=== PATIENT | male | born 1995 | race Caucasian/White ===

== ENCOUNTER 2017-04-05 08:28 | Observation (INO) | payer OTHER ==
[2017-04-05] MEDS ORDERED: ONDANSETRON 4 MG/2 ML VIAL ONE ×2 (09:08→16:58)
[2017-04-05] MEDS ORDERED: NS 1,000 ML IV ONE ×3 (09:12→09:29)
[2017-04-05] MEDS ORDERED: ONDANSETRON 4 MG/2 ML VIAL IVP ONE (09:12)
--- NOTE | 2017-04-05 09:13 | EDPHY ---
H & P Time Seen by Provider: 04/05/17 09:06 HPI/ROS: Chief complaint. Abdominal pain HPI. 21-year-old male presents with abdominal pain for 2 days. He initially thought he had food poisoning. He has been vomiting and can't keep fluids down. However now he has right lower quadrant pain. No diarrhea. Hurts to move and cough. Decreased urination. No chest discomfort or shortness of breath or fever. No similar symptoms previously. Penis and testicles are normal ROS Constitutional. no fever/chills, no weakness Eyes. no problems with vision ENT. no sore throat, no nasal drainage Cardiovascular. no chest pain Respiratory. no shortness of breath, no cough Abdominal. Right lower quadrant abdominal pain with vomiting . no problems urinating MS. no calf pain/swelling, no neck/back pain, no joint pain Skin. no rash Lymph. no swollen glands Neuro. no headache, no dizziness, no difficulty walking or with speech Past Medical/Surgical History: Healthy Social History: Single, nonsmoker, no alcohol Smoking Status: Never smoked Physical Exam: General Appearance: Alert well-developed male moderate distress vital signs are stable Eyes: Pupils equal and round no pallor or injection. ENT, Mouth: Mucous membranes are moist. Respiratory: There are no retractions, lungs are clear to auscultation. Cardiovascular: Regular rate and rhythm. Gastrointestinal: Abdomen is soft with tenderness in the right lower quadrant. No masses. Normal bowel sounds Neurological: Awake and alert, sensory and motor exams grossly normal. Skin: Warm and dry, no rashes. Musculoskeletal: Neck is supple nontender. Extremities symmetrical, full range of motion. Psychiatric: Patient is oriented X 3, there is no agitation. Constitutional: Initial Vital Signs Temperature (C) 36.9 C 04/05/17 08:30 Heart Rate 98 04/05/17 08:30 Respiratory Rate 18 04/05/17 08:30 Blood Pressure 122/81 H 04/05/17 08:30 O2 Sat (%) 95 04/05/17 08:30 O2 Delivery Mode Room Air O2 (L/minute) 2 Allergies/Adverse Reactions: No Known Allergies Allergy (Unverified 04/05/17 08:30) Home Medications: Medication Instructions Recorded NK [No Known Home Meds] 04/05/17 Medical Decision Making - Diagnostics Imaging Results: Imaging Impressions Abdomen CT 04/05/17 09:29 Impression: 1. Acute appendicitis with appendicolith and thickening up to 11 mm. 2. No drainable abscess, pneumoperitoneum or bowel obstruction. Findings and recommendations discussed with Emergency Department physician, MELISSA MCKEON at 10:54 hour, 04/05/2017. Final report concurs with initial preliminary interpretation. Procedures: IV normal saline. 2 L. Morphine for pain. Zofran for nausea ED Course/Re-evaluation: Re-evaluation patient is stable. He and I discussed imaging study results, treatment plan including need for admission and surgery. He expresses understanding and agreement Intravenous Invanz I consulted and discussed case with Dr. Melissa Mckeon, surgery, who agrees to the admission. He will see the patient shortly Differential Diagnosis: I considered dehydration, diverticulitis, urinary tract infection, gastroenteritis, acute appendicitis - Data Points Laboratory Results: Laboratory Results 04/05/17 09:05 04/05/17 09:05 04/05/17 04/05/17 09:05 09:05 WBC 11.42 10^3/uL H 10^3/uL (3.80-9.50) RBC 5.36 10^6/uL 10^6/uL (4.40-6.38) Hgb 16.3 g/dL g/dL (13.7-17.5) Hct 47.2 % % (40.0-51.0) MCV 88.1 fL fL (81.5-99.8) MCH 30.4 pg pg (27.9-34.1) MCHC 34.5 g/dL g/dL (32.4-36.7) RDW 12.3 % % (11.5-15.2) Plt Count 226 10^3/uL 10^3/uL (150-400) MPV 10.5 fL fL (8.7-11.7) Neut % (Auto) 80.3 % H % (39.3-74.2) Lymph % (Auto) 9.2 % L % (15.0-45.0) [place] % (Auto) 9.5 % % (4.5-13.0) Eos % (Auto) 0.4 % L % (0.6-7.6) Baso % (Auto) 0.2 % L % (0.3-1.7) Nucleat RBC Rel Count 0.0 % % (0.0-0.2) Absolute Neuts (auto) 9.17 10^3/uL H 10^3/uL (1.70-6.50) Absolute Lymphs (auto) 1.05 10^3/uL 10^3/uL (1.00-3.00) Absolute Monos (auto) 1.08 10^3/uL H 10^3/uL (0.30-0.80) Absolute Eos (auto) 0.05 10^3/uL 10^3/uL (0.03-0.40) Absolute Basos (auto) 0.02 10^3/uL 10^3/uL (0.02-0.10) Absolute Nucleated RBC 0.00 10^3/uL 10^3/uL (0-0.01) Immature Gran % 0.4 % % (0.0-1.1) Immature Gran # 0.05 10^3/uL 10^3/uL (0.00-0.10) Sodium 141 mEq/L mEq/L (134-144) Potassium 3.9 mEq/L mEq/L (3.5-5.2) Chloride 102 mEq/L mEq/L (97-110) Carbon Dioxide 23 mEq/l mEq/l (22-31) Anion Gap 16 mEq/L mEq/L (8-16) BUN 11 mg/dL mg/dL (7-23) Creatinine 1.0 mg/dL mg/dL (0.7-1.3) Estimated GFR > 60 Glucose 105 mg/dL H mg/dL (70-100) Calcium 9.9 mg/dL mg/dL (8.5-10.4) Total Bilirubin 1.3 mg/dL mg/dL (0.1-1.4) AST 17 IU/L IU/L (17-59) ALT 23 IU/L IU/L (21-72) Alkaline Phosphatase 60 IU/L IU/L (38-126) Total Protein 8.1 g/dL g/dL (6.3-8.2) Albumin 4.9 g/dL g/dL (3.5-5.0) Lipase 44.0 IU/L IU/L (23-300) Medications Given: Discontinued Medications Sodium Chloride (Ns) 1,000 mls @ 0 mls/hr IV EDNOW ONE; Wide Open PRN Reason: Protocol Stop: 04/05/17 09:13 Last Admin: 04/05/17 09:13 Dose: 1,000 mls Sodium Chloride (Ns) 1,000 mls @ 0 mls/hr IV ONCE ONE; Wide Open PRN Reason: Protocol Stop: 04/05/17 09:30 Last Admin: 04/05/17 10:03 Dose: 1,000 mls Sodium Chloride (Ns) 1,000 mls @ 0 mls/hr IV ONCE ONE; Wide Open PRN Reason: Protocol Stop: 04/05/17 09:30 Last Admin: 04/05/17 09:45 Dose: 1,000 mls Ertapenem 1 gm/ Sodium (Chloride) 100 mls @ 200 mls/hr IV EDNOW ONE PRN Reason: Protocol Stop: 04/05/17 11:42 Last Admin: 04/05/17 11:50 Dose: 100 mls Morphine Sulfate (Morphine) 6 mg IVP EDNOW ONE Stop: 04/05/17 09:30 Last Admin: 04/05/17 09:45 Dose: 6 mg Morphine Sulfate (Morphine) 4 mg IVP EDNOW ONE Stop: 04/05/17 10:35 Last Admin: 04/05/17 10:51 Dose: 4 mg Ondansetron HCl (Zofran) 4 mg IVP EDNOW ONE Stop: 04/05/17 09:13 Last Admin: 04/05/17 09:13 Dose: 4 mg Departure - Departure Disposition: Home, Routine, Self-Care Clinical Impression: Acute appendicitis Qualifiers: Acute appendicitis type: with localized peritonitis Qualified Code(s): K35.3 - Acute appendicitis with localized peritonitis Condition: Fair Referrals: SOFIA ALEGRIA [Other] - As per Instructions
[2017-04-05 09:28] LABS: % IMMATURE GRANULYOCYTES 0.4 % (0.0-1.1); ABSOLUTE IMMATURE GRANULOCYTES 0.05 10^3/uL (0.00-0.10); ADD DIFF? NO; ADD MORPH? NO; ADD SCAN? NO; ATYPICAL LYMPHOCYTE FLAG 0 (0-99); FRAGMENT RBC FLAG 0 (0-99); HEMATOCRIT 47.2 % (40.0-51.0); HEMOGLOBIN 16.3 g/dL (13.7-17.5); LEFT SHIFT FLG 50 (0-99); LIPEMIA HEMOLYSIS FLAG 90 (0-99); MEAN CELL HEMOGLOBIN 30.4 pg (27.9-34.1); MEAN CELL HEMOGLOBIN CONCENTR. 34.5 g/dL (32.4-36.7); MEAN CELL VOLUME 88.1 fL (81.5-99.8); MEAN PLATELET VOLUME 10.5 fL (8.7-11.7); PLATELET CLUMPS FLAG 0 (0-99); PLATELET COUNT 226 10^3/uL (150-400); RED BLOOD CELL COUNT 5.36 10^6/uL (4.40-6.38); RED CELL DISTRIBUTION WIDTH 12.3 % (11.5-15.2)
[2017-04-05 09:43] LABS: ALANINE AMINOTRANSFERASE 23 IU/L (21-72); ALBUMIN 4.9 g/dL (3.5-5.0); ALKALINE PHOSPHATASE 60 IU/L (38-126); ANION GAP 16 mEq/L (8-16); ASPARTATE AMINOTRANSFERASE 17 IU/L (17-59); BILIRUBIN,TOTAL 1.3 mg/dL (0.1-1.4); CALCIUM 9.9 mg/dL (8.5-10.4); CARBON DIOXIDE 23 mEq/l (22-31); CHLORIDE 102 mEq/L (97-110); GLOMERULAR FILTRATION RATE > 60; GLUCOSE 105 mg/dL (70-100); POTASSIUM 3.9 mEq/L (3.5-5.2); SODIUM 141 mEq/L (134-144); TOTAL PROTEIN 8.1 g/dL (6.3-8.2)
[2017-04-05] MEDS ORDERED: IOPAMIDOL (ISOVUE-300) 100 ML BTL ONE (09:45)
[2017-04-05] MEDS ORDERED: ERTAPENEM 1 GM in NS 100 ML IV ONE (11:13)
[2017-04-05] MEDS ORDERED: HYDROmorphONE/DILAUDID 1 MG/ML SYR IVP PRN (12:47)
[2017-04-05] MEDS ORDERED: ONDANSETRON 4 MG/2 ML VIAL IVP PRN (12:47)
[2017-04-05] MEDS ORDERED: NS 1,000 ML IV SCH (13:00)
--- NOTE | 2017-04-05 13:38 | PDGENHP ---
History and Physical - Chief Complaint Nausea vomiting and abdominal pain - History of Present Illness Otherwise healthy 21-year-old male who presents with a 36 hour history of nausea vomiting and abdominal pain. Patient states that 36 hours ago he began to have fairly excruciating nausea with vomiting followed shortly thereafter by pain. He states that this persisted for the last 36 hours and the pain started to worsen a relocated to his right lower quadrant this morning which is why he sought care. He states that the nausea has been fairly persistent, he is able to keep down clears although he vomits most things up. The pain he describes it was initially fairly universal throughout his abdomen relocating to his right lower quadrant this morning. He states that the pain is sharp, nonradiating and 7/10 in intensity. It is worse with rebound and less with deep palpation. History Information - Allergies/Home Medication List Allergies/Adverse Reactions: No Known Allergies Allergy (Unverified 04/05/17 08:30) Home Medications: NK [No Known Home Meds] 04/05/17 [Last Taken Unknown] I have personally reviewed and updated: medical history, social history, surgical history - Social History Smoking Status: Never smoked Additional social history: Student at [employer], studying [employer] biology. Review of Systems ROS: 10pt was reviewed & negative except for what was stated in HPI & below Physical Exam Temp Pulse Resp BP Pulse Ox 37.2 C 75 16 125/56 H 96 04/05/17 12:41 04/05/17 12:41 04/05/17 12:41 04/05/17 12:41 04/05/17 12:41 O2 (L/minute) 2 Constitutional: no apparent distress Eyes: PERRL, anicteric sclera Ears, Nose, Mouth, Throat: moist mucous membranes Cardiovascular: regular rate and rhythym Respiratory: no respiratory distress, no rales or rhonchi Gastrointestinal: no palpable masses, rebound, other (Tender to palpation in the right lower quadrant), No guarding Skin: warm Musculoskeletal: full muscle strength Neurologic: AAOx3, sensation intact bilaterally Psychiatric: interacting appropriately, not anxious Lymph, Heme, Immunologic: No lymphadenopathy Lab Data & Imaging Review 04/05/17 09:05 04/05/17 09:05 WBC 11.42 10^3/uL (3.80-9.50) H 04/05/17 09:05 RBC 5.36 10^6/uL (4.40-6.38) 04/05/17 09:05 Hgb 16.3 g/dL (13.7-17.5) 04/05/17 09:05 Hct 47.2 % (40.0-51.0) 04/05/17 09:05 MCV 88.1 fL (81.5-99.8) 04/05/17 09:05 MCH 30.4 pg (27.9-34.1) 04/05/17 09:05 MCHC 34.5 g/dL (32.4-36.7) 04/05/17 09:05 RDW 12.3 % (11.5-15.2) 04/05/17 09:05 Plt Count 226 10^3/uL (150-400) 04/05/17 09:05 MPV 10.5 fL (8.7-11.7) 04/05/17 09:05 Neut % (Auto) 80.3 % (39.3-74.2) H 04/05/17 09:05 Lymph % (Auto) 9.2 % (15.0-45.0) L 04/05/17 09:05 [place] % (Auto) 9.5 % (4.5-13.0) 04/05/17 09:05 Eos % (Auto) 0.4 % (0.6-7.6) L 04/05/17 09:05 Baso % (Auto) 0.2 % (0.3-1.7) L 04/05/17 09:05 Nucleat RBC Rel Count 0.0 % (0.0-0.2) 04/05/17 09:05 Absolute Neuts (auto) 9.17 10^3/uL (1.70-6.50) H 04/05/17 09:05 Absolute Lymphs (auto) 1.05 10^3/uL (1.00-3.00) 04/05/17 09:05 Absolute Monos (auto) 1.08 10^3/uL (0.30-0.80) H 04/05/17 09:05 Absolute Eos (auto) 0.05 10^3/uL (0.03-0.40) 04/05/17 09:05 Absolute Basos (auto) 0.02 10^3/uL (0.02-0.10) 04/05/17 09:05 Absolute Nucleated RBC 0.00 10^3/uL (0-0.01) 04/05/17 09:05 Immature Gran % 0.4 % (0.0-1.1) 04/05/17 09:05 Immature Gran # 0.05 10^3/uL (0.00-0.10) 04/05/17 09:05 Sodium 141 mEq/L (134-144) 04/05/17 09:05 Potassium 3.9 mEq/L (3.5-5.2) 04/05/17 09:05 Chloride 102 mEq/L (97-110) 04/05/17 09:05 Carbon Dioxide 23 mEq/l (22-31) 04/05/17 09:05 Anion Gap 16 mEq/L (8-16) 04/05/17 09:05 BUN 11 mg/dL (7-23) 04/05/17 09:05 Creatinine 1.0 mg/dL (0.7-1.3) 04/05/17 09:05 Estimated GFR > 60 04/05/17 09:05 Glucose 105 mg/dL (70-100) H 04/05/17 09:05 Calcium 9.9 mg/dL (8.5-10.4) 04/05/17 09:05 Total Bilirubin 1.3 mg/dL (0.1-1.4) 04/05/17 09:05 AST 17 IU/L (17-59) 04/05/17 09:05 ALT 23 IU/L (21-72) 04/05/17 09:05 Alkaline Phosphatase 60 IU/L (38-126) 04/05/17 09:05 Total Protein 8.1 g/dL (6.3-8.2) 04/05/17 09:05 Albumin 4.9 g/dL (3.5-5.0) 04/05/17 09:05 Lipase 44.0 IU/L (23-300) 04/05/17 09:05 Visualized and Interpreted imaging results: Yes Interpretation: CT scan of the abdomen and pelvis shows a dilated fluid-filled appendix measuring 11 mm with an appendicolith, no free fluid or signs of perforation Assessment & Plan Assessment: Acute appendicitis (Acute) Plan: 21-year-old male with acute appendicitis. I discussed the risks benefits and alternatives to surgery, he wishes to proceed. We will plan to keep him NPO, IV fluids, IV pain medicines and Zofran. We will plan to proceed urgently to the operating room for laparoscopic appendectomy. I discussed the plan of action with his bedside nurse and the ED attending Dr. Mckeon
[2017-04-05] MEDS ORDERED: BUPIVACAINE/EPI 0.25% 30 ML SDV ONE (14:35)
[2017-04-05] MEDS ORDERED: LR 1,000 ML IV ONE (15:13)
[2017-04-05] MEDS ORDERED: fentaNYL 100 MCG/2 ML INJ ONE ×2 (15:35→18:17)
[2017-04-05] MEDS ORDERED: MIDAZOLAM 2 MG/2 ML VIAL IVP ONE (15:49)
--- NOTE | 2017-04-05 15:51 | PDANEPAE ---
ANE History of Present Illness ester [place] Past Medical History - Cardiovascular History Hx Hypertension: No Hx Arrhythmias: No Hx Chest Pain: No Hx Coronary Artery / Peripheral Vascular Disease: No Hx CHF / Valvular Disease: No Hx Palpitations: No - Pulmonary History Hx COPD: No Hx Asthma/Reactive Airway Disease: No Hx Recent Upper Respiratory Infection: No Hx Oxygen in Use at Home: No - Endocrine History Hx Diabetes: No Hypothyroid: No Hyperthyroid: No - Renal History Hx Renal Disorders: No - Liver History Hx Hepatic Disorders: No - Neurological & Psychiatric Hx Hx Neurological and Psychiatric Disorders: No ANE Review of Systems Review of systems is: negative - Exercise capacity Exercise capacity: >=4 METS ANE Patient History - Allergies Allergies/Adverse Reactions: No Known Allergies Allergy (Unverified 04/05/17 08:30) - Home Medications Home Medications: NK [No Known Home Meds] 04/05/17 [Last Taken Unknown] - NPO status NPO Since - Liquids (Date): 04/05/17 NPO Since - Liquids (Time): 08:00 NPO Since - Solids (Date): 04/04/17 NPO Since - Solids (Time): 11:59 - Smoking Hx Smoking Status: Never smoked ANE Labs/Vital Signs - Labs Result Diagrams: 04/05/17 09:05 04/05/17 09:05 - Vital Signs Blood Pressure: 122/63 Heart Rate: 61 Respiratory Rate: 16 O2 Sat (%): 98 Height: 182.88 cm Weight: 69.309 kg CL[place]EL Physical Exam - Airway Neck exam: FROM Mallampati Score: Class 2 Mouth exam: normal dental/mouth exam - Pulmonary Pulmonary: no respiratory distress - Cardiovascular Cardiovascular: regular rate and rhythym - ASA Status ASA Status: I ANE Anesthesia Plan Anesthesia Plan: general endotracheal anesthesia
[2017-04-05] MEDS ORDERED: DEXAMETHASONE 4 MG/ML VIAL ONE (15:58)
[2017-04-05] MEDS ORDERED: ROCURONIUM 50 MG/5 ML VIAL ONE (15:58)
[2017-04-05] MEDS ORDERED: LIDOCAINE 2% 5 ML SDV ONE (15:59)
[2017-04-05] MEDS ORDERED: PROPOFOL 200 MG/20 ML VIAL ONE (16:00)
[2017-04-05] MEDS ORDERED: fentaNYL 100 MCG/2 ML INJ IVP ONE (16:00)
[2017-04-05] MEDS ORDERED: GLYCOPYRROLATE 0.2 MG/1 ML VIAL ONE (16:43)
[2017-04-05] MEDS ORDERED: SUGAMMADEX SODIUM 200 MG/2 ML VIAL IVP ONE (16:46)
[2017-04-05] MEDS ORDERED: KETOROLAC 30 MG/1 ML SDV ONE (16:58)
[2017-04-05] MEDS ORDERED: LR 500 ML IV PRN (17:01)
[2017-04-05] MEDS ORDERED: ALBUTEROL 3 ML DEYVIAL IH PRN (17:01)
[2017-04-05] MEDS ORDERED: HYDROCODONE/APAP 5/325 TAB PO PRN ×2 (17:01→17:13)
[2017-04-05] MEDS ORDERED: NALOXONE HCL 0.4 MG/ML INJ IVP PRN (17:01)
[2017-04-05] MEDS ORDERED: fentaNYL 100 MCG/2 ML INJ IVP PRN (17:01)
--- NOTE | 2017-04-05 17:13 | POSTOPPROG ---
Post Op Note Date of Operation: 04/05/17 Surgeon: Alvin Griffin Anesthesiologist: Marek Anesthesia: GET(General Endotracheal) Pre-op Diagnosis: Appendicitis Post-op Diagnosis: same Procedure: lap appy Findings: acute, non perforated Inf/Abcess present in the surg proc area at time of surgery?: No EBL: Minimal Specimen(s): appendix
[2017-04-05] MEDS ORDERED: D5W 1/2 NS W/ 20 KCl/L 1,000 ML IV SCH (17:15)
--- NOTE | 2017-04-05 17:16 | POSTANESTH ---
Post Anesthetic Evaluation Cardiovascular Status: Normal, Stable Respiratory Status: Normal, Stable Level of Consciousness/Mental Status: Can Participate in Eval Pain Control: Adequate, Prn Tx Ordered Nausea/Vomiting Control: Adequate, Prn Tx Ordered Complications Possibly Related to Anesthesia: None Noted
[2017-04-05 18:41] VITALS: RESP 16
--- NOTE | 2017-04-06 05:48 | GOP ---
[f rep st] OPERATIVE REPORT DATE OF OPERATION: 04/05/2017 SURGEON: Alvin Griffin MD RESEARCH TEST ENGINE OPERATOR: None. ANESTHESIA: General endotracheal. ANESTHESIOLOGIST: Dr. Riky Jara. PREOPERATIVE DIAGNOSIS: Acute appendicitis. POSTOPERATIVE DIAGNOSIS: Acute appendicitis. PROCEDURE PERFORMED: Laparoscopic appendectomy. FINDINGS: Acute, inflamed, nonperforated appendicitis. SPECIMENS: Appendix. ESTIMATED BLOOD LOSS: 5 cc. DESCRIPTION OF PROCEDURE: The patient was greeted in the preoperative suite. Once again, risks, be nefits, and alternatives were discussed. Consent was signed. Antibiotics given on-call to the oper ating room. Once in the operating room, after all anesthesia machines, including SCDs were on and f unctioning, a [facility] time-out was performed. General endotracheal anesthesia was then induced without incident. The patient's abdomen was then widely prepped and draped in a typic al sterile fashion. I commenced the procedure by making a linear infraumbilical incision and carryi ng it down through the subcutaneous tissue. Using a Veress needle, I successfully entered the abdom en and insufflated with CO2 to 15 mmHg. Through this, I inserted a 12 mm Visiport under direct visu alization. Once this was done, I placed 2 other 5 mm ports, 1 in the suprapubic and the other in th e left lower quadrant, both under direct visualization. I identified the appendix by tracing the ta eniae inferiorly. Once identified, I created a window at the base of the appendix using a [place] dissector. After this window was successfully created using a single fire of the EndoGIA blue load stapler, I amputated the appendix from the cecal base. In the same fashion, using a white load, I a mputated the mesoappendix. There was a small pulsatile bleeder which was taken care of successfully with multiple 5 mm Endoclips at the site. The patient's pelvis and right lower quadrant were then irrigated with warm normal saline, 1 L, noting clear effluent in the suction canister. The specimen was then placed in an EndoCatch bag and removed. Local anesthesia was then instilled into port sit es. Once again, my staple lines were inspected and noted to be grossly intact and hemostatic. I re moved my ports and evacuated my pneumoperitoneum. I closed my infraumbilical incision using an 0 Vi cryl stitch in a [id number] fashion. The skin was closed with running 4-0 Monocryl, over which Dermabond was placed. The patient was then extubated in the operative suite and taken to the PACU in satisfactory condition. DRAINS: None. COUNTS: All counts were reported as correct x2. /[id number]/MODL
[2017-04-06 08:44] VITALS: TEMP 98
[2017-04-06 09:21] LABS: HEMATOCRIT 40.2 % (40.0-51.0); HEMOGLOBIN 13.6 g/dL (13.7-17.5); MEAN CELL HEMOGLOBIN CONCENTR. 33.8 g/dL (32.4-36.7); MEAN CELL VOLUME 88.7 fL (81.5-99.8); RED BLOOD CELL COUNT 4.53 10^6/uL (4.40-6.38); RED CELL DISTRIBUTION WIDTH 12.2 % (11.5-15.2)
[2017-04-06] MEDS ORDERED: NS BOLUS 1000 ML (Wide open) IV ONE (11:00)
[2017-04-06 11:41] VITALS: BP 109/53; PULSE 80; O2SAT 92
== END 2017-04-06 12:31 | disposition home or self-care (01) ==
LOC: INTOOBSV 11:52 → F3E 12:29
PROVIDERS: ADMIT Surgery; ATTEND Surgery
PROC: 0DTJ4ZZ Resection of Appendix, Percutaneous Endoscopic Approach (ICD-10-PCS; principal; 2017-04-05 16:00)
DX: K35.80 Unspecified acute appendicitis (principal)
CPT/HCPCS: 44970; 74177; 96361; 96365; 96375; 96376; 99285; G0378; J1100; J1335; J1885; J2250; J2405; J2704; J3010; Q9967

== ENCOUNTER 2017-10-13 23:12 | Inpatient (IN) | payer OTHER ==
[2017-10-13] MEDS ORDERED: NS 1,000 ML IV ONE ×2 (23:18)
[2017-10-13] MEDS ORDERED: ONDANSETRON 4 MG/2 ML VIAL IVP ONE (23:18)
--- NOTE | 2017-10-13 23:18 | EDPHY ---
H & P Stated Complaint: Flu-like, SOB, vomiting HPI/ROS: HPI CHIEF COMPLAINT: Flu-like illness HISTORY OF PRESENT ILLNESS: Patient is a very pleasant 21-year-old male, otherwise healthy no significant medical history does not take any daily medications he presents emergency room with muscle aches and joint pain, generalized fatigue, sore throat and a nonproductive cough. Patient states he thinks he may have the flu. He does report that he had some vomiting and this is what prompted to come to the emergency room. Denies Diarrhea. Upon arrival he does appear dehydrated. He denies chest pain or shortness of breath. Denies abdominal pain. Patient denies headache or neck pain. Denies neck stiffness. Denies abdominal pain or urine symptoms. Past Medical History: Denies medical history Past Surgical History: Appendectomy Social History: Denies daily use of drugs alcohol tobacco. Family History: Noncontributory ROS REVIEW OF SYSTEMS: A comprehensive 10 point review of systems is otherwise negative aside from elements mentioned in the history of present illness. Exam Constitutional appears well nontoxic triage nursing summary reviewed, vital signs reviewed, awake/alert. BP noted to be in the 90s Systolic. Eyes normal conjunctivae and sclera, EOMI, PERRLA. HENT posterior pharynx is erythematous without significant exudate or significant swelling, dry mucous membranes, no epistaxis, neck supple/ no meningismus, no raccoon eyes. Respiratory clear to auscultation bilaterally, normal breath sounds, no respiratory distress, no wheezing. Cardiovascular rate normal, regular rhythm, no murmur, no edema, distal pulses normal. Gastrointestinal soft, non-tender, no rebound, no guarding, normal bowel sounds, no distension, no pulsatile mass. Genitourinary no CVA tenderness. Musculoskeletal no midline vertebral tenderness, full range of motion, no calf swelling, no tenderness of extremities, no meningismus, good pulses, neurovascularly intact. Skin extensive acne on his back otherwise no rash pink, warm, & dry, no rash, skin atraumatic. Neurologic awake, alert and oriented x 3, AAOx3, moves all 4 extremities equally, motor intact, sensory intact, CN II-XII intact, normal cerebellar, normal vision, normal speech. Psychiatric normal mood/affect. Heme/Lymph/Immune no lymphadenopathy. Differential Diagnosis: Includes but is not limited to viral syndrome, upper respiratory tract infection, influenza, pneumonia, UTI, strep, dehydration Medical Decision Making: Plan for this patient IV establishment IV fluid bolus , 2 L normal saline, IV Zofran for nausea, chest x-ray, basic blood work, influenza and strep and re-evaluate. Re-evaluation: 0130: Patient developed a fever here. Tylenol Motrin at been given. He has completed 2 L of fluid and still has not made urine. Will give him a 3rd L. he is feeling better. 0231: Blood work is reviewed. As well as chest x-ray. Patient is a negative strep. As well as influenza is negative. Chest x-ray do not see any pneumonia. Patient had rather soft blood pressures here in emergency room an 80 systolic and 90 systolic. Patient reports to me that he typically runs in the 80s to 90s. He is a thin male. 0233: Patient's vitals currently her blood pressure 96/39, heart rate 86. Pulse ox 91% on room air. Patient is getting a Fourth liter of fluid. he has had 3 L of normal saline and now A fourth L of lactated Ringer's. Has not urinated yet. Still appears around exam. He does feel better after the 1st 3 L of fluid as well as Tylenol Motrin for fever control. I have sent blood cultures. Lactic acid is less than 1. He does not have systemic white count. Given his soft blood pressures and fever he most likely has a viral syndrome but I will admitted to the hospitalist service for observation due to his blood pressure running slightly low. I do not feel that he needs vasopressors at this time. He has responded to IV fluids. Most likely has a viral illness. Blood cultures are pending. Resp panel sent UA pedning 0242: Consult the hospitalist service for observation of this patient overnight for dehydration and soft blood pressures. Blood cultures are pending. Respiratory panel is pending. UA pending. On exam no source of infection. I do not feel that he needs antibiotics at this times most likely viral process in the setting of dehydration. Source: Patient - Personal History Current Tetanus Diphtheria and Acellular Pertussis (TDAP): Yes - Medical/Surgical History Hx Asthma: No Hx Chronic Respiratory Disease: No Hx Diabetes: No Hx Cardiac Disease: No Hx Renal Disease: No Hx Cirrhosis: No Hx Alcoholism: No Hx HIV/AIDS: No Hx Splenectomy or Spleen Trauma: No Other PMH: depression and insomnia- past - Social History Smoking Status: Never smoked Constitutional: Initial Vital Signs Temperature (C) 37.5 C 10/13/17 23:16 Heart Rate 112 H 10/13/17 23:16 Respiratory Rate 20 10/13/17 23:16 Blood Pressure 93/52 L 10/13/17 23:16 O2 Sat (%) 95 10/13/17 23:16 O2 Delivery Mode Room Air Allergies/Adverse Reactions: No Known Allergies Allergy (Unverified 10/13/17 23:14) Home Medications: Medication Instructions Recorded Acetaminophen [Tylenol 325mg (*)] 650 mg PO Q4HRS PRN tab 10/15/17 Ibuprofen [Motrin (*)] 400 mg PO Q6H PRN #30 tab 10/15/17 Oseltamivir Phosphate [Tamiflu 75 75 mg PO BIDMEAL #7 cap 10/15/17 mg (*)] Medical Decision Making - Data Points Laboratory Results: Laboratory Results 10/13/17 23:47 10/13/17 23:47 Medications Given: Discontinued Medications Acetaminophen (Tylenol) 1,000 mg PO EDNOW ONE Stop: 10/14/17 00:16 Last Admin: 10/14/17 00:27 Dose: 1,000 mg Acetaminophen (Tylenol) 650 mg PO Q4HRS PRN PRN Reason: Pain, Mild/Fever, Can Take PO Stop: 04/12/18 02:59 Last Admin: 10/14/17 20:06 Dose: 650 mg Sodium Chloride (Ns) 1,000 mls @ 0 mls/hr IV EDNOW ONE; Wide Open PRN Reason: Protocol Stop: 10/13/17 23:19 Last Admin: 10/13/17 23:48 Dose: 1,000 mls Sodium Chloride (Ns) 1,000 mls @ 0 mls/hr IV EDNOW ONE; Wide Open PRN Reason: Protocol Stop: 10/13/17 23:19 Last Admin: 10/14/17 00:19 Dose: 1,000 mls Sodium Chloride (Ns) 1,000 mls @ 0 mls/hr IV ONCE ONE PRN Reason: Wide Open Stop: 10/14/17 01:35 Last Admin: 10/14/17 01:41 Dose: 1,000 mls Lactated Ringer's (Lr) 1,000 mls @ 500 mls/hr IV EDNOW ONE Stop: 10/14/17 04:06 Last Admin: 10/14/17 02:14 Dose: 1,000 mls Lactated Ringer's (Lr) 1,000 mls @ 150 mls/hr IV CONT CUONG Stop: 04/12/18 03:29 Last Admin: 10/15/17 09:43 Dose: 1,000 mls Ibuprofen (Motrin) 800 mg PO EDNOW ONE Stop: 10/14/17 00:16 Last Admin: 10/14/17 00:28 Dose: 800 mg Ibuprofen (Motrin) 400 mg PO Q6H PRN PRN Reason: Pain, Mild/Fever, Can Take PO Stop: 04/12/18 18:13 Last Admin: 10/15/17 09:27 Dose: 400 mg Ondansetron HCl (Zofran) 4 mg IVP EDNOW ONE Stop: 10/13/17 23:19 Last Admin: 10/13/17 23:48 Dose: 4 mg Ondansetron HCl (Zofran) 4 mg IVP EDNOW ONE Stop: 10/14/17 00:16 Last Admin: 10/14/17 00:20 Dose: 4 mg Ondansetron HCl (Zofran) 4 mg IVP Q4HRS PRN PRN Reason: Nausea/Vomiting, Can't Take PO Stop: 04/12/18 02:59 Last Admin: 10/15/17 04:32 Dose: 4 mg Oseltamivir Phosphate (Tamiflu) 75 mg PO BIDMEAL [facility] Stop: 10/18/17 18:01 Last Admin: 10/15/17 09:27 Dose: 75 mg Departure - Departure Disposition: [facility] Acute Clinical Impression: Dehydration, Acute febrile illness Condition: Good
[2017-10-13 23:59] LABS: PLATELET COUNT 207 10^3/uL (150-400)
[2017-10-14] MEDS ORDERED: IBUPROFEN 800 MG TAB PO ONE (00:15)
[2017-10-14] MEDS ORDERED: ACETAMINOPHEN 500 MG TAB PO ONE (00:15)
[2017-10-14] MEDS ORDERED: ONDANSETRON 4 MG/2 ML VIAL IVP ONE (00:15)
[2017-10-14] MEDS ORDERED: NS 1,000 ML IV ONE (01:34)
[2017-10-14] MEDS ORDERED: LR 1,000 ML IV ONE (02:07)
[2017-10-14] MEDS ORDERED: HYDROCODONE/APAP 5/325 TAB PO PRN (03:00)
[2017-10-14] MEDS ORDERED: ONDANSETRON DISINTEGRATING 4 MG TAB PO PRN (03:00)
--- NOTE | 2017-10-14 05:50 | GHP ---
[f rep st] HISTORY AND PHYSICAL DATE OF ADMISSION: 10/14/2017 SOURCE: Patient provides history, appears reliable. EMR also reviewed and case discussed with ED aundrea maharaj. CHIEF COMPLAINT: Viral syndrome with cough, muscle aches, fatigue, sore throat, and vomiting. HISTORY OF PRESENT ILLNESS: This is a very pleasant 21-year-old gentleman with no significant past m edical history and not on any medications, who presents to the emergency department today with compla ints of 1-day history of nonproductive cough, diffuse myalgias, fatigue, fevers, chills, sore throat, and vomiting at home. Patient reports multiple sick contact exposures. He is a student at . Lakshmi coy did develop a fever in the emergency department and was noted to have some low normal blood pres sures. Patient reports that he has a history of low normal blood pressures, typically in the 90s. P atient denies any lightheadedness, chest pain, palpitations, syncope. After patient developed the na usea and vomiting, he presented to the emergency department for evaluation. REVIEW OF SYSTEMS: Negative except as noted above. ALLERGIES: No known drug allergies. MEDICATIONS: None. PAST MEDICAL HISTORY: None. PAST SURGICAL HISTORY: Significant for appendectomy. FAMILY HISTORY: Maternal grandmother with history of diabetes. SOCIAL HISTORY: Patient is currently a student at studying molecular biology. He is originally f [place], [place], and has been in [place] for the last 3 years. He denies any tobacco or drug use . No marijuana use. He does occasionally use alcohol, but nothing on a daily basis. CODE STATUS: Full. PHYSICAL EXAMINATION: VITAL SIGNS: Upon arrival to the emergency department, blood pressure 93/52, heart rate 112, respiratory rate 20, O2 sat 95 on room air, with a temperature of 37.5. Fever, T-max in the ER is 38.8. Current vitals on the floor: Blood pressure 104/43, heart rate is 66, respirato ry rate 18, O2 sat is 92% on room air with a temperature 36.6. GENERAL: No acute distress. Pleasan t, acutely ill, but nontoxic, young adult male, is lying quietly in bed. He does appear fatigued and ill. HEAD: Normocephalic, atraumatic. EYES: Extraocular muscles grossly intact. Pupils equal, r ound, decreased reactivity to light bilaterally, but symmetric. No scleral icterus or conjunctival i njection. ENT: Mucous membranes currently appear moist. There is some posterior oropharyngeal eryt maría without any exudates. NECK: Supple. Trachea midline. Patient does have some submandibular ly mph nodes that are slightly tender to palpation. CV: Regular rate and rhythm. No murmurs, rubs, or gallops appreciated. RESPIRATORY: Unlabored breathing. Lungs are clear to auscultation bilaterall y. No wheezes, rales, or rhonchi appreciated. ABDOMEN: Positive bowel sounds. Soft, nontender to palpation. No rebound, guarding, or masses appreciated. : No Christine in place. No suprapubic tend erness to palpation. EXTREMITIES: No cyanosis, clubbing, or edema appreciated. 2+ pedal pulses caleb aterally. MUSCULOSKELETAL: Strength is grossly normal. Patient is able to move all extremities and sit up independently. NEUROLOGIC: Grossly nonfocal. No facial drooping. Strength intact. PSYCHI ATRIC: Patient awake, alert, and oriented x4. He is quite fatigued, but thought process, content, a nd questions are appropriate. LABORATORY STUDIES: WBCs 6.38, H and H are 16.5 and 45.1, MCV of 84.9, platelet count is 207, neutro edwin percent is 84.3, without any bands. VBG, lactic acid 0.7. Sodium is 139, potassium 3.7, chlori de 102, CO2 is 23, anion gap is 14, BUN is 13, creatinine is 1.2, GFR greater than 60, glucose is 110 , calcium 10.0, total bilirubin is 1.4, ALT is 25, AST is 18, alk phos is 64, total protein 7.7, albu min is 4.9, lipase is 52. Procalcitonin is 0.1. Nasal flu PCR negative. Flu A/B, mono negative. G roup a strep negative with a DNA pending. Blood cultures x2 pending. Chest x-ray image report reviewed myself. Single view is normal. ASSESSMENT AND PLAN: Pleasant 21-year-old gentleman, with no significant past medical history, prese nts with a viral syndrome. 1. Hypotension. Patient is status post 4 L of IV fluid and blood pressures have subsequently increa sed to just above this with systolic of 100s. Review of patient's previous records indicate that lakshmi coy would normally have blood pressures in the low 100s systolic, dating back to March of this year. Will continue with IV fluid supplementation. Patient, after 4 L, finally feels the urge to urinate. Nearly 400 cc of urine on bladder scan. Will continue with IV fluids. Encourage oral intake as to lerated. 2. Systemic inflammatory response syndrome criteria without severe sepsis, improved after IV fluids and Tylenol for fever. Lactate is within normal limits. Blood cultures are pending, however, suspec t this is likely a viral syndrome given multiple exposures. Will hold off on antibiotics at this travis e. No need for pressor support as patient does indicate that his baseline blood pressure is typicall y in the systolics of low 100s or 90s. He is asymptomatic. 3. Viral syndrome. Negative for flu, mono, and strep. A respiratory panel is still pending. Richmond phillips is currently temporarily on isolation precautions pending remainder of studies. 4. Fluids/electrolytes/nutrition. Patient will continue with IV fluids. Electrolyte replacement if needed. Encourage oral intake, hydration, regular diet is ordered as tolerated. 5. Prophylaxis. SCDs, holding anticoagulation secondary to low risk status and anticipated short ho spital stay. 6. Code status is full. 7. Disposition: Patient will be admitted to observation on the medical floor. Again, anticipate sh ort hospital stay once patient's blood pressure stabilized and is able to void and tolerate clears, duncan killian be able to discharge home, if not later this evening, then tomorrow. /[id number]/MODL
[2017-10-14] MEDS: LR 1,000 ML IV SCH ×3 (06:53→21:56)
[2017-10-14] MEDS: OSELTAMIVIR PHOSPHATE 75 MG CAP PO SCH ×2 (09:00→18:19)
--- NOTE | 2017-10-14 09:31 | ASMTCMCOM ---
CM Note CM Note Notes: 10/14/2017 Case Management Note Reviewed chart. There are no case management d/c needs identified d/t pt age, support from significant other, and status as a [employer] student. There are no PT or OT evals ordered at this time. Case Management d/c poc: home independent with follow up as directed. Case Management available if needs change. Date Signed: 10/14/2017 09:31 AM Electronically Signed By:Natalie Carnes RN
[2017-10-14] MEDS: ONDANSETRON 4 MG/2 ML VIAL IVP PRN (14:53)
[2017-10-14] MEDS: ACETAMINOPHEN 325 MG TAB PO PRN ×2 (15:06→20:06)
--- NOTE | 2017-10-14 17:12 | HOSPPROG ---
Hospitalist Progress Note Assessment/Plan: Patient changed to in patient status due to fever, nausea, vomiting, and possiblle dehydration. He will require further IV fluids. Objective: Vital Signs Temp Pulse Resp BP Pulse Ox 39.2 C H 113 H 20 93/38 L 94 10/14/17 16:00 10/14/17 16:00 10/14/17 16:00 10/14/17 16:00 10/14/17 16:00 10/13/17 10/14/17 10/15/17 05:59 05:59 05:59 Intake Total 4000 Output Total 500 Balance 3500 ICD10 Worksheet Patient Problems: Problems Problem Status Onset Acute appendicitis Acute Dehydration Acute Acute febrile illness Acute
[2017-10-14] MEDS ORDERED: ACETAMINOPHEN 325 MG SUPP PR PRN (18:13)
[2017-10-14] MEDS: IBUPROFEN 200 MG TAB PO PRN (18:18)
--- NOTE | 2017-10-14 19:27 | PDMN ---
Medical Necessity Medical necessity: C/M review: Patient meets INPT criteria under [facility] M-160 Sepsis and Other Febrile Illness, without Focal Infection; Acute and persistent - febrile illness, fevers, 39.4 T max, nausea, vomiting, poor oral intake requiring ongling IV LR 150 ml/hr, frequent IV Zofran, pulse oximetry. MD anticipates > 2 MN LOS for ongoing med nec for eval and TX of above.
[2017-10-15] MEDS: IBUPROFEN 200 MG TAB PO PRN ×2 (02:36→09:27)
[2017-10-15] MEDS: ONDANSETRON 4 MG/2 ML VIAL IVP PRN (04:32)
[2017-10-15 05:24] LABS: PLATELET COUNT 140 10^3/uL (150-400)
[2017-10-15] MEDS: OSELTAMIVIR PHOSPHATE 75 MG CAP PO SCH (09:27)
[2017-10-15] MEDS: LR 1,000 ML IV SCH (09:43)
[2017-10-15 11:48] VITALS: BP 126/67; PULSE 86; RESP 16; TEMP 98.4; O2SAT 93
--- NOTE | 2017-10-15 17:38 | GDS ---
[f rep st] DISCHARGE SUMMARY NEW AND ACUTE DIAGNOSES ON THIS ADMISSION: 1. Acute flu pneumonitis. 2. Nausea, vomiting, and abdominal pain secondary to #1. CHRONIC DIAGNOSES: None. CONSULTATIONS: None. PROCEDURES: None. HOSPITAL COURSE: 21-year-old male presented with nausea, vomiting, and fever, and was noted to be fl u A positive. He was placed on Tamiflu and IV fluids. He continued to have nausea, vomiting, and fe delfino for approximately 36 hours and then defervesced, felt well, and WAS able to eat a regular diet wi thout difficulties. He felt much improved. He had taken 3 doses of Tamiflu at the time of discharge and will be prescribed the remaining 7 doses. DISCHARGE MEDICATIONS: Tamiflu 75 mg b.i.d. (#7), ibuprofen and Tylenol for relief of pain. 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 TIME SPENT: 40 minutes with greater than 50% to substance abuse counselor and coordinate care for this gentleman. Exp lained the self-care he would need (as he is alone) and his followup. I also explained the molecular aspects of the influenza virus and its mechanism, as he has a neurobiology student. /[id number]/MODL
--- NOTE | 2017-10-16 15:22 | ASDISCHSUM ---
Discharge Information Plan Status:Home with No Needs Medically Cleared to Leave: Discharge Date:10/15/2017 04:11 PM CM D/C Disposition:Home, Routine, Self-Care ADT D/C Disposition:Home, Routine, Self-Care Projected Discharge Date:10/15/2017 04:11 PM Transportation at D/C:Friend Discharge Delay Reason: Follow-Up Date:10/15/2017 04:11 PM Discharge Slot: Final Diagnosis: Placement Information Patient Contact Information Contact Name:GILBERTO Relationship:Other Address:[address] [place] [address] Work Phone: City:[place] Alternate Phone: [facility]/Zip Code:[place] [address] Email: Financial Information Financial Class:Commercial Primary Plan Desc:[facility] Primary Plan Number:[id number] Secondary Plan Desc: Secondary Plan Number: Assessment Information [facility] CM Progress Note CM Note CM Note Notes: 10/14/2017 Case Management Note Reviewed chart. There are no case management d/c needs identified d/t pt age, support from significant other, and status as a [employer] student. There are no PT or OT evals ordered at this time. Case Management d/c poc: home independent with follow up as directed. Case Management available if needs change. Date Signed: 10/14/2017 09:31 AM Electronically Signed By:Natalie Carnes RN Case Management Discharge Plan Note Case Management Discharge Discharge Order Complete? Answers: Yes Patient to Obtain Answers: Independently Medications Transportation Arranged Answers: Family/Friends Transport will Pick (Date 10/15/2017 12:00 AM & Time) Discharge Comments Notes: Patient admitted for N/V/D, fever, Hypotension, treated, was discharged Tuesday w/no needs. Date Signed: 10/16/2017 03:21 PM Electronically Signed By:Prabha Viramontes LCSW Intervention Information
== END 2017-10-15 16:11 | disposition home or self-care (01) | DRG 195 ==
LOC: F3N 10-14 04:33 → OBSVTOIN 10-14 17:05
PROVIDERS: ADMIT Family Medicine; ATTEND Family Medicine
DX: J10.00 Influenza due to other identified influenza virus with unspecified type of pneumonia (principal)
CPT/HCPCS: 96374; J2405